=== PATIENT | male | born 1950 | race Caucasian/White ===

== ENCOUNTER 2021-01-25 07:55 | Emergency (ER) | payer MEDICARE, BC ==
[~2021-01-25] VITALS: Ht 170.2 cm; Wt 70.7 kg
[~2021-01-25 07:55] MED LIST: AMLO-150 PO; APIX5TAB PO; ATOR-2 PO; ATOR20TA37 PO; CARB1TAB25 PO; CARV6.2512 PO; HYDR-3341 PO; ISOS10TA2 PO; LOSA25TA25 PO; METF500T17 PO; METO25TA35 PO; MIRT-14 PO; MIRT-15 PO; NITR0.4T28 SL; TRAZ50TA66 PO; VALP250C59 PO; VALP250S3 PO
--- NOTE | 2021-01-25 08:10 | NUR ---
BIB HENRY, STATES PT WAS AT [facility] FOR BEING IN A "MIND ALTERING STATE" SINCE MAY GOT HOME YESTERDAY HAD A GLF AND HAD SOME OF THE SAME "ALTERED STATE" PT ON ELOQUIS PT STATES FELT DIZZY AND MAY HAVE SCRAPPED HEAD. PT ALSO HAS HX OF DEMENTIA.
--- NOTE | 2021-01-25 08:15 | NUR ---
PROVIDER AT BEDSIDE TO DO EVALUATION.
[2021-01-25 08:43] LABS: BASOPHILS % (AUTO) 1 % (0-1); EOSINOPHILS % (AUTO) 2 % (1-7); LYMPHOCYTES % (AUTO) 23 % (22-44); MD NO; MEAN CORPUSCULAR HEMOGLOBIN 31.7 pg (27.5-34.5); MEAN CORPUSCULAR HGB CONC 34.6 g/dL (33.2-36.2); MEAN PLATELET VOLUME 7.9 fL (7.4-10.4); MONOCYTES % (AUTO) 11 % (2-9); NEUTROPHILS % (AUTO) 64 % (42-75); PLATELET COUNT 146 x10^3/uL (130-400); RED BLOOD COUNT 4.13 x10^6/uL (4.38-5.82); RED CELL DISTRIBUTION WIDTH 14.5 % (9.4-14.8)
--- NOTE | 2021-01-25 08:50 | NUR ---
AT BEDSIDE. STATES THAT HER WAS SEEN IN HOSPITAL IN November TO H WAS IN [facility] FROM THE UNTIL YESTERDAY. THIS AM STATES SHE WAS MAKING BREAKFAST WHEN SHE HEARD HER DOGS BARKING SHE CAME IN TO THE RESTROOM PT WAS LYING OVER THE SINK SHE THOUGHT HE WAS MAYBE THROWING UP, HE REPLIED TO HER "I FEEL DIZZY". THEN STOOD PT UP TO SIT ON TOILET PT JUST FELL STRAIGHT BACK AND HIT HIS HEAD PT TRIED TO GUIDE HIM BACK, FELL OUT OF HER ARMS WITH HIS EYES WIDE OPEN AND DIDN'T REALLY RESPOND UNTIL EMS SHOWED UP AND THE PT WAS ALTERED DIDN'T KNOW WHERE OR WHO HE WAS.
[2021-01-25 08:51] LABS: ALANINE AMINOTRANSFERASE 7 U/L (12-78); ALBUMIN 2.9 g/dL (3.4-5.0); ANION GAP 5 mmol/L (5-15); CALCIUM 7.8 mg/dL (8.5-10.1); CHLORIDE 109 mmol/L (98-107); CREATININE 0.69 mg/dL (0.7-1.3)
[2021-01-25 08:55] LABS: ALKALINE PHOSPHATASE 39 U/L (45-117); BILIRUBIN,TOTAL 0.7 mg/dL (0.2-1.0); TOTAL PROTEIN 5.7 g/dL (6.4-8.2); TROPONIN I < 0.015 ng/mL (0.000-0.045)
[2021-01-25 09:31] LABS: MICROSCOPIC AUTO
[2021-01-25] MEDS ORDERED: POTASSIUM CHLORIDE 20 MEQ PACKET ONE (10:10)
[2021-01-25] MEDS ORDERED: POTASSIUM CHLORIDE 20 MEQ PACKET PO ONE (10:30)
[2021-01-25 10:31] VITALS: BP 106/64
--- NOTE | 2021-01-25 10:47 | NUR ---
Pt stood and walked to the door and back without assistance. Patient/Caregiver given discharge instructions and they have confirmed that they understand the instructions. Pt wheeled to discharge desk with no questions at time of discharge.
== END 2021-01-25 10:49 | disposition home or self-care (01) ==
LOC: ED 08:36
DX: S09.90XA Unspecified injury of head, initial encounter (principal); E87.6 Hypokalemia; Z79.01 Long term (current) use of anticoagulants; R00.1 Bradycardia, unspecified; G20 Parkinson's disease; I48.91 Unspecified atrial fibrillation; R07.89 Other chest pain; I10 Essential (primary) hypertension; E11.9 Type 2 diabetes mellitus without complications; W18.30XA Fall on same level, unspecified, initial encounter; Y93.89 Activity, other specified; Y92.009 Unspecified place in unspecified non-institutional (private) residence as the place of occurrence of the external cause; Y99.8 Other external cause status
CPT/HCPCS: 36415; 70450; 71045; 80053; 80164; 81001; 83880; 84484; 85025; 93005; 99285